=== PATIENT | male | born 1985 | race Caucasian/White ===

== ENCOUNTER 2019-01-29 11:38 | Day surgery (SDC) | payer OTHER ==
[2019-01-29] MEDS ORDERED: LIDOCAINE 4% SOLUTION 50 ML BTL (13:35)
[2019-01-29] MEDS ORDERED: PROPOFOL 20 ML (13:35)
[2019-01-29] MEDS ORDERED: MIDAZOLAM 1 MG/ML 2 ML INJ (13:35)
[2019-01-29] MEDS ORDERED: FENTAnyl 50 MCG/ML VIAL (13:35)
== END 2019-01-29 17:43 | disposition home or self-care (01) ==
LOC: GIL 11:38
DX: K21.9 Gastro-esophageal reflux disease without esophagitis (principal)
CPT/HCPCS: 43239; 88305; 88312